=== PATIENT | female | born 1985 | race Caucasian/White ===

== ENCOUNTER 2016-07-14 12:47 | Emergency (ER) | payer OTHER ==
[~2016-07-14] VITALS: Ht 170.2 cm; Wt 64.0 kg
[~2016-07-14 12:47] MED LIST: CEPH500C3 PO; ENOX40P SQ; IBUP600 PO; IBUP800T23 PO; OXYC1SOL5 PO; PERI8.6T PO; PREN0.01 PO; VENO20IN IV
[2016-07-14 12:49] VITALS: BP 133/85; PULSE 72; RESP 15; TEMP 98.4; O2SAT 98
[2016-07-14 13:10] VITALS: BP 127/87; PULSE 88; RESP 20; O2SAT 100
--- NOTE | 2016-07-14 14:08 | PD ---
HPI Chief Complaint: Related Problem Time Seen by Provider: 13:52 Travel History International Travel<30 days: No Contact w/Intl Traveler<30days: No Traveled to known affect area: No History of Present Illness HPI 41-year-old female complains of lower abdominal discomfort, low back pain, vaginal bleeding. Patient is five-week by date. Patient has been seen by OB physician Dr. Burgess. Patient has history of recurrent spontaneous . Patient is 12 para 1 AB 10. Patient denies any headache. Patient denies any chest pain or shortness of breath. Patient denies fever chills. Patient denies dysuria or frequency. Patient states that the vaginal bleeding started this morning has been steady bleeding. Patient denies any passing blood clots or tissue. PFSH Past Medical History Cardiovascular Problems: No Diminished Hearing: No Genitourinary: No Musculoskeletal: No Neurologic: No Reproductive: No Respiratory: No Immunizations Current: Yes Tetanus Vaccination: < 5 Years Influenza Vaccination: Yes ?: LMP: 06/05/16 : 8 Para: 0 Miscarriage: 7 Ectopic : Yes Dilation and Curettage (D&C): Yes Past Surgical History Other Surgery: Yes Social History Alcohol Use: No Tobacco Use: No Substance Use: No Allergies-Medications (Allergen,Severity, Reaction): Coded Allergies: Sulfa (Verified Allergy, Unknown, 12/22/15) Reported Meds & Prescriptions Reported Meds & Active Scripts Active Review of Systems General / Constitutional: No: Fever Eyes: No: Visual changes HENT: No: Headaches Cardiovascular: No: Chest Pain or Discomfort Respiratory: No: Shortness of Breath Gastrointestinal: Positive: Abdominal Pain Genitourinary: Positive: Vaginal Bleeding, No: Dysuria Musculoskeletal: No: Pain Skin: No Rash Neurologic: No: Weakness Psychiatric: No: Depression Endocrine: No: Polydipsia Hematologic/Lymphatic: No: Easy Bruising Physical Exam Narrative GENERAL: Well-nourished, well-developed patient. SKIN: Focused skin assessment warm/dry. HEAD: Normocephalic. EYES: No scleral icterus. No injection or drainage. NECK: Supple, trachea midline. No JVD or lymphadenopathy. CARDIOVASCULAR: Regular rate and rhythm without murmurs, gallops, or rubs. RESPIRATORY: Breath sounds equal bilaterally. No accessory muscle use. GASTROINTESTINAL: Abdomen soft, non-tender, nondistended. MUSCULOSKELETAL: No cyanosis, or edema. BACK: Nontender without obvious deformity. No CVA tenderness. PHYSICIAN OFFICE CLIN ASST exam: Patient had pinkish discharge in the vaginal vault. No cervical motion tenderness. Uterus mildly enlarged mild tenderness on palpation. No adnexal mass or tenderness. Data Data Last Documented VS Vital Signs Date Time Temp Pulse Resp B/P Pulse Ox O2 Delivery O2 Flow Rate FiO2 07/14/16 15:43 82 20 116/69 99 Room Air 07/14/16 12:49 98.4 6 Orders Beta Hcg (Quant/Titer) (07/14/16 13:54) Complete Blood Count With Diff (07/14/16 13:54) Basic Metabolic Panel (Bmp) (07/14/16 13:54) Us Pelvis (Ques Pr/Ect)W Trans (07/14/16 ) Urinalysis - C+S If Indicated (07/14/16 13:54) Iv Access Insert/Monitor (07/14/16 13:54) Labs Laboratory Tests Test 07/14/16 07/14/16 14:01 14:13 Urine Color LIGHT-YELLOW Urine Turbidity HAZY Urine pH 5.5 Urine Specific [place] 1.003 Urine Protein NEG mg/dL Urine Glucose (UA) NEG mg/dL Urine Ketones 10 mg/dL Urine Occult Blood MOD Urine Nitrite NEG Urine Bilirubin NEG Urine Urobilinogen LESS THAN 2.0 MG/DL Urine Leukocyte Esterase SMALL Urine RBC 2 /hpf Urine WBC 3 /hpf Urine Squamous Epithelial 5 /hpf Cells Urine Bacteria RARE /hpf Microscopic Urinalysis Comment CULT NOT INDICATED White Blood Count 8.8 TH/MM3 Red Blood Count 4.51 MIL/MM3 Hemoglobin 13.2 GM/DL Hematocrit 38.9 % Mean Corpuscular Volume 86.2 FL Mean Corpuscular Hemoglobin 29.2 PG Mean Corpuscular Hemoglobin 33.9 % Concent Red Cell Distribution Width 13.1 % Platelet Count 349 TH/MM3 Mean Platelet Volume 9.1 FL Neutrophils (%) (Auto) 70.0 % Lymphocytes (%) (Auto) 21.5 % Monocytes (%) (Auto) 7.1 % Eosinophils (%) (Auto) 0.8 % Basophils (%) (Auto) 0.6 % Neutrophils # (Auto) 6.2 TH/MM3 Lymphocytes # (Auto) 1.9 TH/MM3 Monocytes # (Auto) 0.6 TH/MM3 Eosinophils # (Auto) 0.1 TH/MM3 Basophils # (Auto) 0.1 TH/MM3 CBC Comment DIFF FINAL Differential Comment Sodium Level 140 MEQ/L Potassium Level 3.2 MEQ/L Chloride Level 105 MEQ/L Carbon Dioxide Level 29.5 MEQ/L Anion Gap 6 MEQ/L Blood Urea Nitrogen 5 MG/DL Creatinine 0.62 MG/DL Estimat Glomerular Filtration 114 ML/MIN Rate Random Glucose 87 MG/DL Calcium Level 9.0 MG/DL Human Chorionic Gonadotropin, 181 MIU/ML Quant MDM Medical Decision Making Medical Screen Exam Complete: Yes Emergency Medical Condition: Yes Interpretation(s) 1606 p.m. CBC within normal limit. BMP within normal limit. Beta hCG 181. Potassium 3.2. UA is negative. Differential Diagnosis Differential diagnosis including threatened AB, incomplete AB, completed AB, ectopic . Narrative Course 31-year-old female, 5 weeks with lower abdominal discomfort and vaginal bleeding. I spoke with Dr. Burgess. Advised patient to follow with him the office tomorrow. Diagnosis Primary Impression: Incomplete Patient Instructions: General Instructions Additional Instructions: Advised patient to follow up with Dr. Burgess in a.m. as scheduled. Return if increasing pelvic pain, excessive bleeding. Med/Other Pt SpecificInfo: No Change to Meds Disposition: 01 DISCHARGE HOME Condition: Stable Esau Garcia MD Jul 14, 2016 14:08
[2016-07-14 14:22] LABS: BACTERIA, URINE RARE /hpf; BLOOD, URINE MOD (NEG); COMMENT (UR) CULT NOT INDICATED; CULTURE IF INDICATED CULT NOT INDICATED; GLUCOSE,URINE NEG (NEG); KETONE, URINE 10 mg/dL (NEG); NITRITE,URINE NEG (NEG); PH, URINE 5.5 (5.0-8.5); SQUAMOUS EPITHELIAL CELL URINE 5 /hpf (0-5); URINE COLOR LIGHT-YELLOW (YELLW/STRAW)
[2016-07-14 14:41] LABS: AUTOMATED NEUTROPHIL # 6.2 TH/MM3 (1.8-7.7); BASOPHIL # 0.1 TH/MM3 (0-0.2); BASOPHIL % 0.6 % (0.0-2.0); EOSINOPHIL # 0.1 TH/MM3 (0-0.4); EOSINOPHIL % 0.8 % (0.0-4.0); HEMATOCRIT 38.9 % (35.0-46.0); HEMO FLAGS DIFF FINAL; LYMPH % 21.5 % (9.0-44.0); LYMPHOCYTE # 1.9 TH/MM3 (1.0-4.8); MEAN CELL VOLUME 86.2 FL (80.0-100.0); MEAN CORPUSCULAR HEMOGLOBIN 29.2 PG (27.0-34.0); MEAN CORPUSCULAR HGB CONC 33.9 % (32.0-36.0); MONO % 7.1 % (0.0-8.0); PLATELET COUNT 349 TH/MM3 (150-450); RED BLOOD COUNT 4.51 MIL/MM3 (4.00-5.30); RED CELL DISTRIBUTION WIDTH 13.1 % (11.6-17.2); WHITE BLOOD COUNT 8.8 TH/MM3 (4.0-11.0)
[2016-07-14 14:53] LABS: BICARBONATE 29.5 MEQ/L (21.0-32.0); POTASSIUM 3.2 MEQ/L (3.5-5.1)
[2016-07-14 15:43] VITALS: BP 116/69; PULSE 82; RESP 20; O2SAT 99
--- NOTE | 2016-07-14 17:24 | RADRPT ---
EXAM DATE/TIME: 07/14/2016 15:51 [facility] COMPARISON: US PELVIS (QUEST PREG/ECTOPIC) W/TRANSVAG, November 02, 2013, 11:54. INDICATIONS : Vaginal bleeding. LAB(S): Beta-hC MEDICAL HISTORY : . Hx of miscarriage. SURGICAL HISTORY : Dilation and curettage. Left ankle surgery. ENCOUNTER: Initial ACUITY: 1 day PAIN SCORE: 4/10 LOCATION: Bilateral pelvis MEASUREMENTS: UTERUS: 8.9 x 5.0 x 4.0 cm ENDOMETRIAL STRIPE: 10 mm RIGHT OVARY: 1.0 x 1.3 x 1.0 cm LEFT OVARY: 1.9 x 2.3 x 2.0 cm FREE FLUID: No CROWN RUMP LENGTH: 0.14 cm = OOR WKS DAYS FHR: Nonvisualized BPM FINDINGS: UTERUS: The myometrium has homogeneous echotexture without mass. A small gestational sac is identified in th e lower uterine segment/cervix measuring 7 x 5 x 7 mm. This is too small to correlate with gestationa l age. Yolk sac is identified with a diminutive pole measuring 1.4 mm in length. Again, too sma ll to date. No heart motion identified. RIGHT OVARY: Ovary contains no mass or significant cystic lesion. LEFT OVARY: Ovary contains no mass lesions. Dominant 1.2 x 1.4 x 1.3 cm cyst. MISCELLANEOUS: No free fluid. CONCLUSION: 1. Diminutive gestational sac in the lower uterine segment/cervix region. Diminutive pole no fe nafisa heart motion. Spectrum of findings are characteristic of an in progress. 2. Small, 1.2 x 1.4 x 1.3 cm left ovarian cyst, likely a corpus luteum. 3. No free fluid. Aniket Akins MD on July 14, 2016 at 17:18 Board Certified Radiologist. This report was verified electronically.
== END 2016-07-14 17:13 | disposition home or self-care (01) ==
LOC: NEPD 12:47
DX: O03.4 Incomplete spontaneous abortion without complication (principal); O26.891 Other specified pregnancy related conditions, first trimester; M54.5 Low back pain; R10.30 Lower abdominal pain, unspecified; Z3A.01 Less than 8 weeks gestation of pregnancy
CPT/HCPCS: 76700; 76817; 80048; 81001; 84702; 85025